=== PATIENT | male | born 1965 | race Caucasian/White ===

== ENCOUNTER 2018-05-05 18:52 | Emergency (ER) | payer BC ==
[2018-05-05 19:31] VITALS: O2SAT 100
[2018-05-05] MEDS ORDERED: Sodium Chloride 0.9% 500 ML IV STA (20:34)
--- NOTE | 2018-05-05 21:34 | C.PDOC ---
History Of Present Illness 52 y/o male, with history of migraines and headache, comes in complaining of exacerbation of headache since yesterday. Patient states no relief with advil. Also complains of photophobia and 2 episodes of vomiting. Denies weakness, numbness, dizziness, neck pain, or fever. Time Seen by Provider: 05/05/18 19:56 Chief Complaint (Nursing): Headache History Per: Patient History/Exam Limitations: no limitations Onset/Duration Of Symptoms: Days Current Symptoms Are (Timing): Still Present Past Medical History Reviewed: Historical Data, Nursing Documentation, Vital Signs Vital Signs: Last Vital Signs Temp 98.3 F 05/05/18 19:27 Pulse 84 05/05/18 19:27 Resp 20 05/05/18 19:27 BP 138/88 05/05/18 19:27 Pulse Ox 100 05/05/18 19:27 Family History: States: No Known Family Hx - Social History Hx Tobacco Use: No Hx Alcohol Use: Yes Hx Substance Use: No - Immunization History Hx Tetanus Toxoid Vaccination: No Hx Influenza Vaccination: No Hx Pneumococcal Vaccination: No Review Of Systems Except As Marked, All Systems Reviewed And Found Negative. Constitutional: Negative for: Fever Eyes: Positive for: Other (photophobia) Cardiovascular: Negative for: Chest Pain Respiratory: Negative for: Shortness of Breath Gastrointestinal: Positive for: Vomiting Musculoskeletal: Negative for: Neck Pain Neurological: Positive for: Headache. Negative for: Weakness, Numbness, Dizziness Physical Exam - Physical Exam Appears: Non-toxic, No Acute Distress Skin: Warm, Dry Head: Atraumatic, Normacephalic Eye(s): bilateral: Normal Inspection Oral Mucosa: Moist Neck: Normal ROM, No Paracervical Tenderness, Supple Chest: Symmetrical Cardiovascular: Rhythm Regular, No Murmur Respiratory: Normal Breath Sounds, No Rales, No Rhonchi, No Wheezing Gastrointestinal/Abdominal: Soft, No Tenderness Extremity: Bilateral: Atraumatic, Normal Color And Temperature, Normal ROM Neurological/Psych: Oriented x3, Normal Speech ED Course And Treatment O2 Sat by Pulse Oximetry: 100 (RA) Pulse Ox Interpretation: Normal Progress Note: Patient was given toradol IV, reglan IV, and IV fluids. Patient reports moderate improvement of his pain, vitals stable and will be discharged home. Reevaluation Time: 21:42 Reassessment Condition: Improved Disposition Counseled Patient/Family Regarding: Diagnosis, Need For Followup, Rx Given - Disposition Referrals: [facility] at [facility] [Outside] Disposition: HOME/ ROUTINE Disposition Time: 21:42 Condition: STABLE Additional Instructions: Keep yourself hydrated Take fioricet as directed Follow up with PMD Return to ER if worse Prescriptions: Acetaminophen/Butalbital/Caf [Fioricet] 1 - 2 tab PO TID PRN #20 tab PRN Reason: Headache Instructions: Migraine Headache (DC) Forms: [employer] (Kyrgyz) Print Language: MALTESE - Clinical Impression Clinical Impression: Migraine, Headache - PA / MANAGER DIGITAL / Resident Statement MD/DO has reviewed & agrees with the documentation as recorded. - Scribe Statement The provider has reviewed the documentation as recorded by the Scribaramis Diego All medical record entries made by the Chaunceyibaramis were at my direction and personally dictated by me. I have reviewed the chart and agree that the record accurately reflects my personal performance of the history, physical exam, medical decision making, and the department course for this patient. I have also personally directed, reviewed, and agree with the discharge instructions and disposition.
[2018-05-05 21:35] VITALS: BP 117/71; PULSE 74; RESP 17; TEMP 98.4
== END 2018-05-05 21:48 | disposition home or self-care (01) ==
LOC: C.ER 18:52
DX: G43.909 Migraine, unspecified, not intractable, without status migrainosus (principal)
CPT/HCPCS: 96361; 96374; 96375; 99284; J1885; J2765; J7040